=== PATIENT | male | born 1985 | race Caucasian/White ===

== ENCOUNTER 2025-04-23 21:43 | Emergency (ER) | payer BC ==
[2025-04-23] MEDS ORDERED: DIAZEPAM 10 MG/2 ML INJ SYRINGE ONE (22:10)
[2025-04-23] MEDS ORDERED: KETOROLAC 30 MG/ML INJ ONE (22:11)
[2025-04-23] MEDS ORDERED: MORPHINE 4 MG/ML SYR ONE (22:11)
[2025-04-23 23:51] LABS: Urine Microscopic Reflex YN NO UMIC
--- NOTE | 2025-04-24 | ER ---
Nurse's Notes [facility] Name: Eduardo Keys Age: 39 yrs Sex: Male : 1985 Arrival Date: 04/23/2025 Time: 21:43 Bed 13 Private MD: Diagnosis: Lumbago with sciatica, right side Presentation: 04/23 21:56 Chief complaint: Patient states: herniated L5 S1 got a steroid injection last . vc1 Today the pain is so bad my right leg is numb. Coronavirus screen: Client denies travel out of the [place] in the last 14 days. At this time, the client does not indicate any symptoms associated with coronavirus-19. Ebola Screen: Patient negative for fever greater than or equal to 101.5 degrees Fahrenheit, and additional compatible Ebola Virus Disease symptoms Patient denies exposure to infectious person. Patient denies travel to an Ebola-affected area in the 21 days before illness onset. No symptoms or risks identified at this time. Initial Sepsis Screen: Does the patient meet any 2 criteria? No. Patient's initial sepsis screen is negative. Does the patient have a suspected source of infection? No. Patient's initial sepsis screen is negative. Risk Assessment: Do you want to hurt yourself or someone else? Patient reports no desire to harm self or others. Onset of symptoms is unknown. 21:56 Method Of Arrival: Ambulatory vc1 21:56 Acuity: LLOYD 3 vc1 21:56 Care prior to arrival: Medication(s) given: Motrin, 800 mg, Tylenol, 1000 mg. vc1 Triage Assessment: 22:01 General: Appears in no apparent distress. uncomfortable, Behavior is cooperative, vc1 appropriate for age, restless. Pain: Complains of pain in low back area Pain radiates to right leg Pain currently is 9 out of 10 on a pain scale. Quality of pain is described as sharp, numb. EENT: No deficits noted. No signs and/or symptoms were reported regarding the EENT system. Neuro: Level of Consciousness is awake, alert, obeys commands, Oriented to person, place, time, situation, Appropriate for age. Cardiovascular: Heart tones S1 S2 present Capillary refill < 3 seconds Patient's skin is warm and dry. Respiratory: Airway is patent Respiratory effort is even, unlabored, Respiratory pattern is regular, symmetrical. GI: No deficits noted. No signs and/or symptoms were reported involving the gastrointestinal system. : No deficits noted. No signs and/or symptoms were reported regarding the genitourinary system. Derm: Skin is intact, is healthy with good turgor, Skin is dry, Skin is normal, Skin temperature is warm. Musculoskeletal: Circulation, motion, and sensation intact. Range of motion: intact in all extremities, Reports numbness in right leg pain in low back area Pain is 9 out of 10 on a pain scale. Historical: - Allergies: 22:00 No Known Allergies; vc1 - Home Meds: 22:00 None [Active]; vc1 - PMHx: 22:00 Herniated L5 S1; vc1 - PSHx: 22:00 None; vc1 - Immunization history:: Client reports having NOT received the Covid vaccine. Flu vaccine is not up to date. - Infectious Disease History:: Denies. - Social history:: Smoking status: Patient denies any tobacco usage or history of. Screenin:01 [facility] ED Fall Risk Assessment (Adult) History of falling in the last 3 months, rg5 including since admission No falls in past 3 months (0 pts) Confusion or Disorientation No (0 pts) Intoxicated or Sedated No (0 pts) Impaired Gait No (0 pts) Mobility Assist Device Used No (0 pt) Altered Elimination No (0 pt) Score/Fall Risk Level 0 - 2 = Low Risk Oriented to surroundings, Maintained a safe environment. Abuse screen: Denies threats or abuse. Nutritional screening: No deficits noted. Tuberculosis screening: No symptoms or risk factors identified. Assessment: 22:01 General: Appears in no apparent distress. uncomfortable, Behavior is calm, cooperative, rg5 appropriate for age. Pain: Complains of pain in back Quality of pain is described as aching. Neuro: Level of Consciousness is awake, alert, obeys commands, Oriented to person, place, time, situation. Cardiovascular: Denies chest pain, Patient's skin is warm and dry. Respiratory: Airway is patent Trachea midline Respiratory effort is even, unlabored. GI: Abdomen is flat, non-distended. : No signs and/or symptoms were reported regarding the genitourinary system. EENT: No signs and/or symptoms were reported regarding the EENT system. Derm: Skin is intact, Skin is dry, Skin is normal. Musculoskeletal: Circulation, motion, and sensation intact. Range of motion: intact in all extremities. 22:50 General: Appears in no apparent distress. comfortable, Behavior is calm, cooperative. af3 Pain: Complains of pain in back Pain currently is 3 out of 10 on a pain scale. Neuro: Level of Consciousness is awake, alert, obeys commands, Oriented to person, place, time, situation. Cardiovascular: Patient's skin is warm and dry. Respiratory: Airway is patent Respiratory effort is even, unlabored, Respiratory pattern is regular, symmetrical. GI: No signs and/or symptoms were reported involving the gastrointestinal system. : No signs and/or symptoms were reported regarding the genitourinary system. EENT: No signs and/or symptoms were reported regarding the EENT system. Derm: Skin is intact, is healthy with good turgor, Skin is pink, warm \T\ dry. normal. Musculoskeletal: Circulation, motion, and sensation intact. Range of motion: intact in all extremities. 04/24 00:06 Reassessment: Patient appears in no apparent distress at this time. No changes from af3 previously documented assessment. Patient and/or family updated on plan of care and expected duration. Pain level reassessed. Patient is alert, oriented x 3, equal unlabored respirations, skin warm/dry/pink. Vital Signs: 04/23 21:56 BP 135 / 88; Pulse 62; Resp 14; Temp 97.7; Pulse Ox 100% ; Weight 70.31 kg; Height 5 vc1 ft. 10 in. ; Pain 9/10; 22:45 BP 121 / 82; Pulse 60; Resp 15; Pulse Ox 97% on R/A; af3 23:30 BP 122 / 82; Pulse 61; Resp 16; Pulse Ox 98% on R/A; af3 21:56 Body Mass Index 22.24 (70.31 kg, 177.8 cm) vc1 21:56 Pain Scale: Adult vc1 ED Course: 21:44 Patient arrived in ED. mr 21:52 Ranjit Teran PA-C is PHCP. cp 21:52 Félix Hamilton DO is Attending Physician. cp 21:52 Edwin Plata, TRA is Primary Nurse. rg5 22:00 Triage completed. vc1 22:01 Arm band placed on left wrist. vc1 22:01 Patient has correct armband on for positive identification. Bed in low position. Call rg5 light in reach. Side rails up X 1. Door closed. Noise minimized. 22:01 No provider procedures requiring assistance completed. rg5 04/24 00:07 Provided Education on: discharge follow up, medications. af3 00:08 Patient did not have IV access during this emergency room visit. af3 Administered Medications: 04/23 22:26 Drug: Ketorolac IM 30 mg IM once Route: IM; Site: right gluteus; rg5 23:30 Follow up: Response: No adverse reaction; Pain is decreased af3 22:27 Drug: morphine IM 4 mg IM once Route: IM; Site: left gluteus; rg5 23:30 Follow up: Response: No adverse reaction; Pain is decreased af3 22:27 Drug: Diazepam IM 5 mg IM once Route: IM; Site: left gluteus; rg5 23:30 Follow up: Response: No adverse reaction; Pain is decreased af3 22:27 Drug: Dexamethasone IM 10 mg IM once Route: IM; Site: left gluteus; rg5 23:30 Follow up: Response: No adverse reaction; Pain is decreased af3 Medication: 22:01 VIS not applicable for this client. rg5 Outcome: 23:59 Discharge ordered by MD. mloina 04/24 00:08 Discharged to home ambulatory, with significant other, af3 Condition: good Discharge instructions given to patient, Instructed on discharge instructions, follow up and referral plans. medication usage, Demonstrated understanding of instructions, follow-up care, medications, Prescriptions given X 4, 00:12 Patient left the ED. af3 Signatures: Lynn Leslie, Nicola Reg Ranjit Durán, PA-C PABrittneyC Maddie Benavides RN RN vc1 Edwin Plata RN RN rg5 Uzma Roy RN RN af3
--- NOTE | 2025-04-24 | EDPHYS ---
Physician Documentation [facility] Name: Eduardo Keys Age: 39 yrs Sex: Male : 1985 Arrival Date: 04/23/2025 Time: 21:43 Bed 13 Private MD: ED Physician Félix Hamilton HPI: 04/23 22:10 This 39 yrs old Male presents to ER via Ambulatory with complaints of Back Pain. cp 22:10 The patient presents with pain exacerbation of chronic low back pain. cp 22:10 The symptoms are located in the low back. cp 22:10 Onset: The symptoms/episode began/occurred gradually, and became worse today. The pain cp radiates to the posterior aspect of right leg. Associated signs and symptoms: Pertinent positives: numbness radiating down posterior right leg, Pertinent negatives: abdominal pain, chest pain, constipation, dysuria, fever, incontinence, numbness, urinary retention, weakness. The problem was sustained patient reports hx of herniated disc at L5-S1 and having steroid injection this past . Historical: - Allergies: 22:00 No Known Allergies; vc1 - Home Meds: 22:00 None [Active]; vc1 - PMHx: 22:00 Herniated L5 S1; vc1 - PSHx: 22:00 None; vc1 - Immunization history:: Client reports having NOT received the Covid vaccine. Flu vaccine is not up to date. - Infectious Disease History:: Denies. - Social history:: Smoking status: Patient denies any tobacco usage or history of. ROS: 22:15 Constitutional: Negative for body aches, chills, fever, poor PO intake, cp 22:15 Cardiovascular: Negative for chest pain, edema, palpitations, cp 22:15 Respiratory: Negative for cough, shortness of breath, wheezing, 22:15 Abdomen/GI: Negative for abdominal pain, vomiting, diarrhea, constipation, bowel incontinence, 22:15 Back: Positive for pain at rest, pain with movement, 22:15 : Negative for urinary symptoms, difficulty urinating, bladder incontinence, testicular pain 22:15 MS/extremity: Positive for paresthesias, of the back of right leg, pain, 22:15 Neuro: Negative for altered mental status, dizziness, headache, weakness, 22:15 All other systems are negative, Exam: 22:20 Head/Face: Normocephalic, atraumatic. cp 22:20 Constitutional: The patient appears in no acute distress, alert, awake, non-toxic, well developed, well nourished, uncomfortable, 22:20 Eyes: Periorbital structures: appear normal, Conjunctiva: normal, no exudate, no injection, Sclera: no appreciated abnormality, Lids and lashes: appear normal, bilaterally, 22:20 ENT: External ear(s): are unremarkable, Nose: is normal, Mouth: Lips: moist, Oral mucosa: moist, Posterior pharynx: Airway: no evidence of obstruction, patent, 22:20 Neck: ROM/movement: is normal, is supple, without pain, no range of motions limitations, 22:20 Chest/axilla: Inspection: normal, 22:20 Cardiovascular: Rate: normal, Rhythm: regular, Edema: is not appreciated, JVD: is not appreciated, 22:20 Respiratory: the patient does not display signs of respiratory distress, Respirations: normal, no use of accessory muscles, no retractions, labored breathing, is not present, Breath sounds: are clear throughout, no decreased breath sounds, no stridor, no wheezing, 22:20 Abdomen/GI: Inspection: abdomen appears normal, Palpation: abdomen is soft and non-tender, in all quadrants, 22:20 Back: pain, that is severe, of the lumbar area and right low back, ROM is painful, with all movement, Straight leg raises: of both lower extremities does not illicit pain, 22:20 Neuro: Orientation: to person, place \T\ time. Mentation: is normal, Motor: moves all fours, no focal deficits, Sensation: numbness, that is mild, of the posterior aspect right leg, Deep tendon reflexes are 2+ (normal) in the right patellar, right Achilles, left patellar and left Achilles, Vital Signs: 21:56 BP 135 / 88; Pulse 62; Resp 14; Temp 97.7; Pulse Ox 100% ; Weight 70.31 kg; Height 5 vc1 ft. 10 in. ; Pain 9/10; 22:45 BP 121 / 82; Pulse 60; Resp 15; Pulse Ox 97% on R/A; af3 23:30 BP 122 / 82; Pulse 61; Resp 16; Pulse Ox 98% on R/A; af3 21:56 Body Mass Index 22.24 (70.31 kg, 177.8 cm) vc1 21:56 Pain Scale: Adult vc1 MDM: 21:52 Medical Screening Exam initiated cp 22:30 Differential diagnosis: ruptured disc, Ureterolithiasis cauda equina, spinal stenosis, cp herniated disc. 23:59 Data reviewed: vital signs, nurses notes, lab test result(s), and as a result, I will cp discharge patient. 23:59 Counseling: I had a detailed discussion with the patient and/or guardian regarding the cp historical points, exam findings, and any diagnostic results supporting the discharge/admit diagnosis, lab results, the need for outpatient follow up, a neurosurgeon, a house painter, to return to the emergency department if symptoms worsen or persist or if there are any questions or concerns that arise at home. 23:59 I considered the following discharge prescriptions or medication management in the cp emergency department Medications were administered in the Emergency Department. See MAR. Test considered but Not performed: MRI: lumbar spine. Response to treatment: pain improved, will discharge to home for continued monitoring . 04/23 22:02 Order name: CAMACHO Cardenasx Manan Cult if indicated; Complete Time: 00:45 cp Administered Medications: 22:26 Drug: Ketorolac IM 30 mg IM once Route: IM; Site: right gluteus; rg5 23:30 Follow up: Response: No adverse reaction; Pain is decreased af3 22:27 Drug: morphine IM 4 mg IM once Route: IM; Site: left gluteus; rg5 23:30 Follow up: Response: No adverse reaction; Pain is decreased af3 22:27 Drug: Diazepam IM 5 mg IM once Route: IM; Site: left gluteus; rg5 23:30 Follow up: Response: No adverse reaction; Pain is decreased af3 22:27 Drug: Dexamethasone IM 10 mg IM once Route: IM; Site: left gluteus; rg5 23:30 Follow up: Response: No adverse reaction; Pain is decreased af3 Disposition: 04/24 00:45 Co-signature as Attending Physician, Félix Hamilton DO I reviewed the patient's care tt7 provided by the Advanced Practice Provider and agree with the diagnosis and treatment plan. 04/25 00:08 Chart complete. cp Disposition Summary: 04/23/25 23:59 Discharge Ordered Notes: Location: Home cp Problem: an acute exacerbation cp Symptoms: have improved cp Condition: Stable cp Diagnosis - Lumbago with sciatica, right side cp Followup: cp - With: Private Physician - When: 2 - 3 days - Reason: Recheck today's complaints Discharge Instructions: - Discharge Summary Sheet cp - Chronic Back Pain cp - Sciatica cp - Back Exercises cp Forms: - Medication Reconciliation Form cp - Antibiotic Education cp - Prescription Opioid Use cp - Patient Portal Instructions cp - Leadership Thank You Letter cp Prescriptions: - Diclofenac Sodium 75 mg Oral Tablet Sustained Release - take 1 tablet ORAL route 2 times per day; 30 tablet; Refills: 0, Product cp Selection Permitted - Medrol (Kalen) 4 mg Oral Tablets, Dose Pack - take 1 tablet ORAL route as directed - follow package instructions; 1 packet; cp Refills: 0, Product Selection Permitted - methocarbamol 750 mg Oral tablet - take 1 tablet ORAL route 4 times per day; 30 tablet; Refills: 0, Product cp Selection Permitted - Tylenol-Codeine #3 300mg-30mg Oral tablet - take 1 tablet ORAL route every 4 hours As needed; 14 tablet; Refills: 0, cp Product Selection Permitted Signatures: Dispatcher [employer] EDMS Ranjit Teran PA-C PA-C cp Calcote, Vanessa RN RN vc1 Edwin Plata RN RN rg5 Félix Hamilton DO DO tt7 Uzma Roy RN af3 Corrections: (The following items were deleted from the chart) 04/24 23:58 04/23 22:10 The problem was sustained patient reports hx of herniated disc at L5-S1. cp reports having steroid injection this past , cp 04/25 00:06 04/24 22:20 Constitutional: The patient appears in no acute distress, alert, awake, cp non-toxic, well developed, well nourished, uncomfortable, cp 04/25 00:06 04/24 22:20 Head/Face: Normocephalic, atraumatic. cp cp 04/25 00:04/24 22:20 Eyes: Periorbital structures: appear normal, Conjunctiva: normal, no cp exudate, no injection, Sclera: no appreciated abnormality, Lids and lashes: appear normal, bilaterally, cp 04/25 00:06 04/24 22:20 ENT: External ear(s): are unremarkable, Nose: is normal, Mouth: Lips: cp moist, Oral mucosa: moist, Posterior pharynx: Airway: no evidence of obstruction, patent, cp 04/25 00:04/24 22:20 Neck: ROM/movement: is normal, is supple, without pain, no range of motions cp limitations, cp 04/25 00:04/24 22:20 Chest/axilla: Inspection: normal, cp cp 04/25 00:04/24 22:20 Cardiovascular: Rate: normal, Rhythm: regular, Edema: is not appreciated, cp JVD: is not appreciated, cp 04/25 00:04/24 22:20 Respiratory: the patient does not display signs of respiratory distress, cp Respirations: normal, no use of accessory muscles, no retractions, labored breathing, is not present, Breath sounds: are clear throughout, no decreased breath sounds, no stridor, no wheezing, cp 04/25 00: 10 22:20 Abdomen/GI: Inspection: abdomen appears normal, Palpation: abdomen is soft cp and non-tender, in all quadrants, cp 04/25 00:04/24 22:20 Back: pain, that is severe, of the lumbar area and right low back, ROM is cp painful, with all movement, Straight leg raises: of both lower extremities does not illicit pain, cp 04/25 00:04/24 22:20 Neuro: Orientation: to person, place \T\ time. Mentation: is normal, Motor: cp moves all fours, no focal deficits, Sensation: numbness, that is mild, of the posterior aspect right leg, Deep tendon reflexes are 2+ (normal) in the right patellar, right Achilles, left patellar and left Achilles, cp 04/25 00:04/24 23:59 Data reviewed: vital signs, nurses notes, lab test result(s), and as a cp result, I will discharge patient, cp
[2025-04-24 01:22] VITALS: TEMP 97.7
[2025-04-24 01:25] VITALS: BP 122/82; O2SAT 98
== END 2025-04-24 00:12 | disposition home or self-care (01) ==
LOC: ER 21:43
DX: M54.41 Lumbago with sciatica, right side (principal)
CPT/HCPCS: 81003; 96372; 99284; J1885; J3360; J1100

== ENCOUNTER 2025-04-26 12:21 | Emergency (ER) | payer BC ==
[2025-04-26] MEDS ORDERED: DIAZEPAM 10 MG/2 ML INJ SYRINGE ONE ×2 (13:21→17:21)
[2025-04-26] MEDS ORDERED: MORPHINE 4 MG/ML SYR ONE (13:21)
[2025-04-26] MEDS ORDERED: ONDANSETRON 4 MG/2 ML VIAL ONE (13:21)
[2025-04-26] MEDS ORDERED: NA CHLORIDE 0.9% 1,000 ML ONE (13:21)
--- NOTE | 2025-04-26 14:33 | RAD REPORT ---
EXAMINATION: CT LUMBAR SPINE WITHOUT CONTRAST CLINICAL INDICATION: Radiculopathy TECHNIQUE: Axial CT images were obtained through the lumbar spine in soft tissue and bone windows wit hout intravenous contrast. Coronal and Sagittal reformatted images were created from the data set. One or more of the following dose reduction techniques were used: Automated exposure control, adjustm ent of the mA and/ or kV according to patient size, and/or iterative reconstruction. Unless otherwise specified, incidental findings do not require dedicated imaging follow-up. COMPARISON: 2018 MRI FINDINGS: For purposes of this dictation, it is assumed that there are 5 non rib-bearing lumbar type vertebrae, and the most caudal fully segmented lumbar vertebra is labeled L5. No fracture seen No dislocation. Very large right posterior lateral disc herniation L5-S1 compresses and displaces the right S1 nerve root and narrows the right aspect of the spleen thecal sac. Small left posterior lateral disc herniation L4-5 IMPRESSION: Very large right posterior lateral disc herniation L5-S1
[2025-04-26] MEDS ORDERED: HYDROMORPHONE HCL 1 MG/ML INJ ONE (15:44)
--- NOTE | 2025-04-26 15:55 | ER ---
Nurse's Notes [facility] Name: Eduardo Keys Age: 39 yrs Sex: Male : 1985 Arrival Date: 04/26/2025 Time: 12:21 Bed 15 Private MD: Diagnosis: Low back pain Presentation: 04/26 12:31 Chief complaint: Patient states: Old L5-S1 injury that is causing pain again. Pain is me1 right lower back and radiates down the back of his right leg causing burning, sharp and numbness all the way down to right heel. Pain level 8/10. Can only urinate lying flat on his back using a urinal. Had an MRI and injections in the past few weeks. Cant get into the neurosurgeon until 05/01 and pain is worsening. Coronavirus screen: Vaccine status: Patient reports being unvaccinated. Ebola Screen: No symptoms or risks identified at this time. Initial Sepsis Screen: Does the patient meet any 2 criteria? No. Patient's initial sepsis screen is negative. Does the patient have a suspected source of infection? No. Patient's initial sepsis screen is negative. Risk Assessment: Do you want to hurt yourself or someone else? Patient reports no desire to harm self or others. Onset of symptoms is unknown. 12:31 Method Of Arrival: Ambulatory mo1 12:31 Acuity: LLOYD 3 me1 Historical: - Allergies: 12:34 No Known Allergies; me1 - Home Meds: 12:34 None [Active]; me1 - PMHx: 12:34 Herniated L5 S1; me1 - PSHx: 12:34 back surgery x2; neck fusion; me1 - Immunization history:: Adult Immunizations up to date. - Infectious Disease History:: Denies. - Social history:: Smoking status: Patient denies any tobacco usage or history of. Screenin:35 [facility] ED Fall Risk Assessment (Adult) History of falling in the last 3 months, jb4 including since admission No falls in past 3 months (0 pts) Confusion or Disorientation No (0 pts) Intoxicated or Sedated No (0 pts) Impaired Gait No (0 pts) Mobility Assist Device Used No (0 pt) Altered Elimination No (0 pt) Score/Fall Risk Level 0 - 2 = Low Risk Oriented to surroundings, Maintained a safe environment. Abuse screen: Denies threats or abuse. Nutritional screening: No deficits noted. Tuberculosis screening: No symptoms or risk factors identified. Assessment: 13:33 General: Appears in no apparent distress. uncomfortable, Behavior is calm, cooperative, jb4 appropriate for age. Pain: Complains of pain in back Pain does not radiate. Pain currently is 10 out of 10 on a pain scale. Neuro: Level of Consciousness is awake, alert, obeys commands, Oriented to person, place, time, situation. Cardiovascular: Patient's skin is warm and dry. Respiratory: Airway is patent Respiratory effort is even, unlabored, Respiratory pattern is regular, symmetrical. Derm: Skin is intact, Skin is pink, warm \T\ dry. Musculoskeletal: Circulation, motion, and sensation intact. Range of motion: intact in all extremities. 15:24 Reassessment: Patient appears in no apparent distress at this time. Patient and/or jb4 family updated on plan of care and expected duration. Pain level reassessed. Patient is alert, oriented x 3, equal unlabored respirations, skin warm/dry/pink. Patient states symptoms have improved. 16:10 Reassessment: Patient appears in no apparent distress at this time. Patient and/or jb4 family updated on plan of care and expected duration. Pain level reassessed. Patient is alert, oriented x 3, equal unlabored respirations, skin warm/dry/pink. Patient states feeling better. 16:48 Reassessment: Patient appears in no apparent distress at this time. Patient and/or jb4 family updated on plan of care and expected duration. Pain level reassessed. Patient is alert, oriented x 3, equal unlabored respirations, skin warm/dry/pink. 17:46 Reassessment: Patient appears in no apparent distress at this time. Patient and/or jb4 family updated on plan of care and expected duration. Pain level reassessed. Patient is alert, oriented x 3, equal unlabored respirations, skin warm/dry/pink. Vital Signs: 12:31 BP 130 / 78; Pulse 70; Resp 18; Temp 98.4; Pulse Ox 100% ; Weight 70.31 kg; Height 5 me1 ft. 10 in. ; Pain 8/10; 15:24 BP 138 / 85; Pulse 78; Resp 18; Pulse Ox 100% on R/A; jb4 16:10 BP 137 / 80; Pulse 50; Resp 16; Pulse Ox 99% on R/A; jb4 17:15 BP 129 / 89; Pulse 52; Resp 16; Pulse Ox 98% on R/A; jb4 12:31 Body Mass Index 22.24 (70.31 kg, 177.8 cm) me1 12:31 Pain Scale: Adult mo1 ED Course: 12:26 Patient arrived in ED. cj3 12:27 Marcus Avilez FNP-C [facility]. ap3 12:27 Ranjit Pitts MD is Attending Physician. ap3 12:34 Triage completed. me1 12:34 Arm band placed on Patient placed in an exam room. me1 13:35 Patient has correct armband on for positive identification. Bed in low position. Call jb4 light in reach. Side rails up X 1. Provided Education on: PLAN OF CARE. 13:45 CT Lumbar Spine Wo Con In Process Unspecified. EDMS 15:00 1500 CALLED [facility] FOR TRANSFER TALKED TO ANGIE. sp 16:10 Sergo Mares, RN is Primary Nurse. jb4 17:47 No provider procedures requiring assistance completed. IV discontinued, intact, jb4 bleeding controlled, No redness/swelling at site. Pressure dressing applied. Administered Medications: 13:33 Drug: NS 0.9% IV 1000 ml IV at 1000 ml once; to be given as a bolus over 60 minutes jb4 Route: IV; Rate: 1000 ml; Site: right antecubital; 15:00 Follow up: Response: No adverse reaction; Marked relief of symptoms; IV Status: jb4 Completed infusion; IV Intake: 1000ml 13:33 Drug: Diazepam IVP 10 mg IVP once Route: IVP; Site: right antecubital; jb4 14:00 Follow up: Response: No adverse reaction; Marked relief of symptoms; Pain is decreased jb4 13:33 Drug: Ondansetron IVP 4 mg IVP once; over 2 minutes Route: IVP; Site: right antecubital;jb4 14:00 Follow up: Response: No adverse reaction jb4 13:33 Drug: morphine IVP or IV 4 mg IVP once over 4 mins Route: IVP; Infused Over: 4 mins; jb4 Site: right antecubital; 14:00 Follow up: Response: No adverse reaction; Marked relief of symptoms; Pain is decreased jb4 15:51 Drug: HYDROmorphone IVP 1 mg IVP once Route: IVP; Site: right antecubital; jb4 16:48 Follow up: Response: No adverse reaction; Marked relief of symptoms; Pain is decreased jb4 17:35 Drug: Diazepam IVP 5 mg IVP once Route: IVP; Site: right antecubital; jb4 17:48 Follow up: Response: Medication administered at discharge. jb4 Medication: 17:15 VIS not applicable for this client. jb4 Intake: 15:00 IV: 1000ml; Total: 1000ml. jb4 Outcome: 15:55 ER care complete, transfer ordered by MD. dr5 17:16 Discharge ordered by MD. dr5 17:47 Discharged to home via wheelchair, with family, jb4 17:47 Condition: stable 17:47 Discharge instructions given to patient, family, Instructed on discharge instructions, follow up and referral plans. no drinking with medication, no driving heavy equipment, medication usage, Demonstrated understanding of instructions, follow-up care, medications, Prescriptions given X 4, 17:48 Patient left the ED. jb4 Signatures: Dispatcher [employer] EDMS Kanika Morales James RN RN jb4 Radha Martino RN RN barbara3 Georgina Coto RN RN me1 Marcus Avilez, BELLPERSON-C BELLPERSON-Cdr5 Sherron Lyles cj3 Corrections: (The following items were deleted from the chart) 17:17 16:49 Response: No adverse reaction; Marked relief of symptoms; IV Status: Completed jb4 infusion; IV Intake: 1000ml jb4
--- NOTE | 2025-04-26 15:55 | EDPHYS ---
Physician Documentation [facility] Name: Eduardo Keys Age: 39 yrs Sex: Male : 1985 Arrival Date: 04/26/2025 Time: 12:21 Bed 15 Private MD: ED Physician Ranjit Pitts HPI: 04/26 15:04 This 39 yrs old Male presents to ER via Ambulatory with complaints of Back dr5 Pain. 15:09 The patient presents with pain that is acute, with no known mechanism of injury. The dr5 symptoms are located in the low back. Onset: The symptoms/episode began/occurred 9 day(s) ago. Patient is a 39-year-old male with no past medical history coming in with severe right lower back pain that is been going on for the past 9 days. Patient reports he was here 2 days ago and was given medication that mildly alleviated the pain but still has numbness and tingling to right lower leg. Patient states that he is having to lay on his back flat to urinate. Patient denies urinary retention, bowel or bladder incontinence, dysuria, fever, constipation. Patient states that he has had surgery on his back before for herniation repair.. Historical: - Allergies: 12:34 No Known Allergies; me1 - Home Meds: 12:34 None [Active]; me1 - PMHx: 12:34 Herniated L5 S1; me1 - PSHx: 12:34 back surgery x2; neck fusion; me1 - Immunization history:: Adult Immunizations up to date. - Infectious Disease History:: Denies. - Social history:: Smoking status: Patient denies any tobacco usage or history of. ROS: 15:09 Constitutional: as per hpi dr5 Exam: 15:09 Constitutional: This is a well developed, well nourished patient who is awake, alert, dr5 and in no acute distress. Head/Face: Normocephalic, atraumatic. ENT: Nares patent. No nasal discharge, no septal abnormalities noted. Tympanic membranes are normal and external auditory canals are clear. Oropharynx with no redness, swelling, or masses, exudates, or evidence of obstruction, uvula midline. Mucous membranes moist. Neck: Trachea midline, no thyromegaly or masses palpated, and no cervical lymphadenopathy. Supple, full range of motion without nuchal rigidity, or vertebral point tenderness. No Meningismus. Chest/axilla: Normal chest wall appearance and motion. Nontender with no deformity. No lesions are appreciated. Cardiovascular: Regular rate and rhythm with a normal S1 and S2. Normal PMI, no JVD. No pulse deficits. Respiratory: Lungs have equal breath sounds bilaterally, clear to auscultation. No rales, rhonchi or wheezes noted. No increased work of breathing, no retractions or nasal flaring. Abdomen/GI: Soft, non-tender, non-distended Skin: Warm, dry with normal turgor. Normal color with no rashes, no lesions, and no evidence of cellulitis. MS/ Extremity: Pulses equal, no cyanosis. Neurovascular intact. Full, normal range of motion. Neuro: Awake and alert, GCS 15, oriented to person, place, time, and situation. Cranial nerves II-XII grossly intact. Motor strength 5/5 in all extremities. Sensory grossly intact. Cerebellar exam normal. Normal gait. 15:09 Back: pain, that is severe, of the right low back, ROM is painful, normal spinal alignment noted, CVA tenderness, that is moderate, muscle spasm, is appreciated in the right low back, Straight leg raises: right lower extremity illicits pain, Vital Signs: 12:31 BP 130 / 78; Pulse 70; Resp 18; Temp 98.4; Pulse Ox 100% ; Weight 70.31 kg; Height 5 me1 ft. 10 in. ; Pain 8/10; 15:24 BP 138 / 85; Pulse 78; Resp 18; Pulse Ox 100% on R/A; jb4 16:10 BP 137 / 80; Pulse 50; Resp 16; Pulse Ox 99% on R/A; jb4 17:15 BP 129 / 89; Pulse 52; Resp 16; Pulse Ox 98% on R/A; jb4 12:31 Body Mass Index 22.24 (70.31 kg, 177.8 cm) me1 12:31 Pain Scale: Adult me1 MDM: 12:29 Medical Screening Exam initiated crystal 17:58 Differential diagnosis: arthritis, Fatigue Osteoarthritis Cauda equina, herniated disc, dr5 cord compression. Data reviewed: vital signs, nurses notes, lab test result(s), CBC, white blood cell count, hemoglobin, hematocrit, platelets, electrolytes, sodium, potassium, chloride, serum bicarbonate, BUN, creatinine, serum glucose, radiologic studies, CT scan, I have discussed the patient's presentation/case with the attending Emergency Department Physician;. Consideration of Admission/Observation Escalation of care including admission/observation considered. Admission was considered and attempted to transfer to [facility].. Management of patient was discussed with the following: Intelligence Specialist: Dr. Perdomo (Neurologist). I considered the following discharge prescriptions or medication management in the emergency department Medications were administered in the Emergency Department. See MAR. Historians other than the Patient: Spouse/Significant Other: at bedside. Parent: Mother at bedside. Care significantly affected by the following Social Determinants of Health: Poor access to healthcare and/or lack of insurance, Poor access to transportation, Problems related to employment. Counseling: I had a detailed discussion with the patient and/or guardian regarding the historical points, exam findings, and any diagnostic results supporting the discharge/admit diagnosis, the presence of at least one elevated blood pressure reading (>120/80) during this emergency department visit, lab results, radiology results, the need to transfer to another facility, for higher level of care, [facility] does not immediately have the required specialist, Patient requires neurosurgeon.. Medication response: Valium, hydromorphone, normal saline,. Response to treatment: the patient's symptoms have markedly improved after treatment. Refusal of service: The patient/guardian displays adequate decision making capability and despite a detailed discussion of alternatives, benefits, risks, and consequences refuses: Admission to the hospital for further work-up and treatment, Transfer to [facility].. ED course: Attempted to transfer patient to [facility] as per patient request. Patient reports that his neurosurgeon is with [facility] Jacinto [facility] and he doesn't want to go anywhere else except there. Patient states that he is very particular and who operates on his back and will only go to his doctor in [facility]. Attempted to transfer to [facility] but spoke with Dr. Perdomo with Dr. Jacinto and Dr. Perdomo reports that he does not meet criteria for admission and will get with Dr. Jacinto this weekend to have him call on Monday. Explained all this to patient. Recommended patient still get transferred due to having difficulties doing activities of the living at home, but patient declined transfer and states that he would rather wait till Monday and go see Dr. Jacinto. I will give patient Valium and refill of medication to help with pain control at home. Long discussion given on medications and to not combine them. CD of CT and report printed and given to patient. All questions answered. Strict ER precautions given. Patient was initially transferred to [facility] as this is the only place that patient states he will go and this is why did not try to stay within [facility] system initially.. 04/26 15:18 Order name: CBC with Diff; Complete Time: 16:23 dr5 04/26 15:18 Order name: CMP; Complete Time: 16:23 dr5 04/26 13:08 Order name: CT Lumbar Spine Wo Con; Complete Time: 14:43 dr5 04/26 12:56 Order name: IV Saline Lock; Complete Time: 13:33 dr5 Administered Medications: 13:33 Drug: NS 0.9% IV 1000 ml IV at 1000 ml once; to be given as a bolus over 60 minutes jb4 Route: IV; Rate: 1000 ml; Site: right antecubital; 15:00 Follow up: Response: No adverse reaction; Marked relief of symptoms; IV Status: jb4 Completed infusion; IV Intake: 1000ml 13:33 Drug: Diazepam IVP 10 mg IVP once Route: IVP; Site: right antecubital; jb4 14:00 Follow up: Response: No adverse reaction; Marked relief of symptoms; Pain is decreased jb4 13:33 Drug: Ondansetron IVP 4 mg IVP once; over 2 minutes Route: IVP; Site: right antecubital;jb4 14:00 Follow up: Response: No adverse reaction jb4 13:33 Drug: morphine IVP or IV 4 mg IVP once over 4 mins Route: IVP; Infused Over: 4 mins; jb4 Site: right antecubital; 14:00 Follow up: Response: No adverse reaction; Marked relief of symptoms; Pain is decreased jb4 15:51 Drug: HYDROmorphone IVP 1 mg IVP once Route: IVP; Site: right antecubital; jb4 16:48 Follow up: Response: No adverse reaction; Marked relief of symptoms; Pain is decreased jb4 17:35 Drug: Diazepam IVP 5 mg IVP once Route: IVP; Site: right antecubital; jb4 17:48 Follow up: Response: Medication administered at discharge. jb4 Disposition Summary: 04/26/25 17:16 Discharge Ordered Notes: Location: Home dr5 Condition: Stable(04/26/25 17:16) dr5 Diagnosis - Low back pain dr5 Followup: dr5 - With: Emergency Department - When: As needed - Reason: Worsening of condition Followup: dr5 - With: Private Physician - When: 1 - 2 days - Reason: Recheck today's complaints, Continuance of care, Re-evaluation by your physician Discharge Instructions: - Discharge Summary Sheet dr5 - Acute Back Pain, Adult dr5 Forms: - Medication Reconciliation Form dr5 - Patient Portal Instructions dr5 - Leadership Thank You Letter dr5 Prescriptions: - Valium 5 mg Oral Tablet - take 1 tablet ORAL route every 8 hours As needed; 20 tablet; Refills: 0, dr5 Product Selection Permitted - Cyclobenzaprine 10 mg Oral Tablet - take 1 tablet ORAL route every 8 hours As needed; 30 tablet; Refills: 0, dr5 Product Selection Permitted - Tramadol 50 mg Oral tablet - take 1 tablet ORAL route every 8 hours as needed; 20 tablet; Refills: 0, dr5 Product Selection Permitted - Tylenol-Codeine #3 300mg-30mg Oral tablet - take 2 tablets ORAL route every 6 hours As needed; 20 tablet; Refills: 0, dr5 Product Selection Permitted Signatures: Dispatcher [employer] EDMS Ranjit Pitts MD MD cha Bryson, James, RN RN jb4 Georgina Coto, TRA RN me1 Marcus Avilez, VEST MAKER-C VEST MAKER-Cdr5 Corrections: (The following items were deleted from the chart) 17:16 15:55 [facility] dr5 dr5 17:16 15:55 [facility] dr5 dr5 17:16 15:55 Higher level of care dr5 dr5 17:16 15:55 Stable dr5 dr5 17:16 15:55 new dr5 dr5 17:16 15:55 have worsened dr5 dr5 17:16 15:55 Other cord compression dr5 dr5 18:06 17:58 ED course: Attempted to transfer patient to [facility] as per patient request. dr5 Patient reports that his neurosurgeon is with [facility] and he doesn't want to go anywhere else except there. Patient states that he is very particular and who operates on his back and will only go to his doctor in [facility]. Attempted to transfer to [facility] but spoke with Dr. Perdomo with Dr. Jacinto and Dr. Perdomo reports that he does not meet criteria for admission and will get with Dr. Jacinto this weekend to have him call on Monday. Explained all this to patient. Recommended patient still get transferred due to having difficulties doing activities of the living at home, but patient declined transfer and states that he would rather wait till Monday and go see Dr. Jacinto. I will give patient Valium and refill of medication to help with pain control at home. Long discussion given on medications and to not combine them. CD of CT and report printed and given to patient. All questions answered. Strict ER precautions given. . dr5
[2025-04-26 15:59] LABS: Absolute Lymphocytes (CBC) 2.4 K/uL (0.7-4.9); Hematocrit 40.2 % (39.6-49.0); Hemoglobin 13.6 g/dL (13.6-17.9); MCH 29.8 pg (27.0-35.0); MCHC 33.8 g/dL (32.0-36.0); MCV 88.0 fL (80-100); MPV 8.5 fL (7.6-11.3); Nucleated RBC Absolute Count 0.0 (0-0); Nucleated Red Blood Cells % 0.0 % (0-0); RBC Red Blood Cell Count 4.57 M/uL (4.33-5.43); White Blood Count 11.90 thou/uL (4.3-10.9)
[2025-04-26 16:12] LABS: ALT/SGPT 41.0 U/L (16-61); AST/SGOT 11.0 U/L (15-37); Albumin 3.5 g/dL (3.4-5.0); Albumin/Globulin Ratio 1.2 (1.1-1.8); Alkaline Phosphatase 59.0 U/L (45-117); Anion Gap 5.7 mEq/L (5.0-15.0); BUN Blood Urea Nitrogen 14.0 mg/dL (7-18); Globulin 3.0 g/dL (2.3-3.5); Glucose Level 97.0 mg/dL (74-106); Potassium 3.7 mEq/L (3.5-5.1)
[2025-04-26 21:35] VITALS: TEMP 98.4
[2025-04-26 21:45] VITALS: BP 129/89; O2SAT 98
== END 2025-04-26 17:48 | disposition home or self-care (01) ==
LOC: ER 12:21
DX: M54.50 Low back pain, unspecified (principal)
CPT/HCPCS: 96361; 85025; 36415; 80053; 72131; 96375; 96374; 99284; J3360 ×2; J1171; J2405; J7030